=== PATIENT | female | born 2000 | race Caucasian/White ===

== ENCOUNTER 2022-10-28 07:45 | Inpatient (IN) ==
[2022-10-28] MEDS ORDERED: OXYTOCIN 30 UNITS/500 ML BAG IV PRN ×2 (08:09)
[2022-10-28] MEDS ORDERED: LIDOCAINE 1% LOCAL 20 ML VIAL INFIL PRN (08:09)
[2022-10-28] MEDS: LACTATED RINGER'S 1,000 ML IV PRN ×4 (08:30→21:47)
--- NOTE | 2022-10-28 08:31 | History & Physical Report ---
Date of Service October 28, 2022 Assessment & Plan (1) Encounter for induction of labor: (2) Post-dates : (3) Rubella non-immune status, antepartum: (4) Eczema: Plan: Gail is a 22F currently at 40 3/7 with YASHIRA 10/25/22 determined by LMP who is presenting to L&D for induction. - Patient admitted to labor and delivery for initiation of medical induction of labor - Patient did not receive Jason bulb or membrane sweep - Patient is at 2/80/-2 w/o evidence of contractions, thus oxytocin augmentation of labor will be started per protocol - Once contractions are progressing, will consider ROM - Will anticipate epidural as contractions arise - Labs pending - Rubella non-immune, will need MMR PP - Evidence of chronic eczema present at bilateral elbows and knees, pt requesting tx PP Admission and Anticipated Discharge Date Admission Date: October 28, 2022 History of Present Illness Chief Complaint: Induction Primary Care Provider: Phuong Lopez PA-C Subjective: Gail is a 22F currently at 40 3/7 with YASHIRA 10/25/22 determined by LMP 01/18/22 who is presenting to L&D for induction. Complications: None, rubella non-immune Reason for Induction: Post-dates Movement: Yes Fluid Loss/ROM: No Bloody show/discharge: Brown tinged vaginal discharge, no bleeding External FHT and uterine monitor: Category 1, tracing reactive, good FHT variability, average HR 150, no contractions Last OB appointment: 10/25, regular care [facility] Hx: Hx of Chlamydia 11/2020 (treated), no other STI hx, no hx of abnormal pap Labs: Blood Type: A+ Antibody Screen: Negative Hg/Hct (today): Pending WBC/Plt (today): Pending Rubella: Non-Immune RPR: Non-reactive Gonorrhea: Negative Chlamydia: Negative HIV: Negative HbSAg: Negative GBS: Negative Cff-DNA: Low risk Panorama: Low risk ROS: - Denies fever, chills, sweats - Denies dyspnea or pleuritic pain - Denies chest pain, palpitations, or pressure - Denies breast pain - Denies dysuria - Denies headache or visual changes : PARUL Daniels) Allergies Allergy/AdvReac Type Severity Reaction Status Date / Time No Known Allergies Allergy Mild Verified 10/25/22 13:34 Home Medications Medication Instructions Recorded Confirmed Type prenat.vits,mellissa,fcc-vaeg-lwfga 1 tab PO DAILY 12/26/21 10/28/22 History Patient History Medical History Allergic rhinitis due to animals Allergic rhinitis due to pollen Atopic dermatitis Chlamydia Eczema Varicella vaccination Surgical History H/O wisdom tooth extraction Family History (Updated 03/13/22 @ 13:19 by Lara Barger) Mother Breast cancer Hypertension Lymphoma Denies family history of Ovarian cancer Colorectal cancer Social History (Updated 03/13/22 @ 13:07 by Lara Barger) Smoking Status: Never smoker Second Hand Exposure: No; Hx Alcohol Use: No Hx Substance Use: No Preferred Language: Somali Communication Ability: Effective Specialist Field Engineer Required: No Beliefs That Will Affect Care: Buddhism marital status: marital status details: Manoj (24) [phone] Current Living Situation: Spouse Current Living Situation Comment: lives with spouse, 1 dog. current occupational status: employed current occupation: RN @ [employer] Other Information That Helps Us Care for You: No Feels Safe at Home: Yes Safety Concerns: Feels Safe At This Time Physical Exam Physical Exam: General: Alert, oriented. No acute distress. Cardiac: Regular rate and rhythm, no murmurs/rubs/gallops. Respiratory: Clear to auscultation bilaterally a/p, no wheezes/rales/rhonchi. No increased work of breathing. Symmetrical chest rise. No respiratory distress. Abdomen: Gravid; FHTs present; Position: Vertex by Stalin maneuver Pelvic: 0800 2/80/-[address] Lan Lower Extremities: No lower extremity edema or swelling. No deep calf pain. Sandy's negative bilaterally. Skin: Patches of dry, erythematous skin w/ associated excoriation present at aundrea ateral flexural surfaces of elbows and knees Results & Data ([facility]) Vital Signs (Past 12 Hours) Vital Signs Pulse BP 10/28/22 08:01 87 122/72 10/28/22 07:59 93 H 135/94 Code Status & VTE Plan VTE Prophylaxis Plan VTE Prophylaxis will be ordered: Yes Supervising Physician Co-Signing Physician Notes Resident Physician Supervision Note: I interviewed and examined the patient. Discussed with Dr. Agosto and agree with findings and plan as documented in the note. Any exceptions or clarifications are listed here: IOL, postdates. Pitocin. Patient agreeable with plan. Documented By: Aretha Lan, Resident Activity Tracking Resident Involvement: Resident Care Provided Care Provided: OB Delivery
[2022-10-28 09:00] LABS: Hematocrit (blood only) 35.5 % (34.1-44.9); Hemoglobin 11.9 g/dl (12.0-16.0); Mean Corpuscular Hemoglobin 30.4 pg (25.0-34.0); Mean Corpuscular Hgb Conc 33.5 g/dL (32.0-36.0); Mean Corpuscular Volume 90.6 fL (80.0-100.0); Mean Platelet Volume 9.9 fL (9.4-12.3); Platelet Count 236 K/uL (130-400); RDW Standard Deviation 42.3 fL (36.4-46.3); Red Blood Count 3.92 M/uL (3.93-5.22); White Blood Count 10.42 K/ul (4.8-10.8)
--- NOTE | 2022-10-28 15:21 | Labor Progress Brief Note ---
Date of Service October 28, 2022 Subjective Not really feeling pain from ctx. FHT Cat 1 toco Q 2 SVE 2-3/80/-2 AROM meconium-stained fluid. Assessment & Plan Admission and Anticipated Discharge Date Admission Date: October 28, 2022 Results & Data ([facility]) Vital Signs (Past 12 Hours) Vital Signs Temp Pulse Resp BP 10/28/22 08:41 36.8 C 87 18 122/72 10/28/22 15:03 85 10/28/22 15:03 127/78 10/28/22 14:01 96 H 10/28/22 14:01 134/79 10/28/22 13:02 79 10/28/22 13:02 121/75 10/28/22 12:01 82 10/28/22 12:01 124/72 10/28/22 11:00 83 10/28/22 11:00 36.9 C 83 18 131/75 10/28/22 10:33 74 10/28/22 10:33 136/85 10/28/22 09:30 81 10/28/22 09:30 118/62 10/28/22 09:25 77 10/28/22 09:25 134/70 10/28/22 08:01 87 122/72 10/28/22 07:59 93 H 135/94 Coding Level of Care Code None
[2022-10-28] MEDS ORDERED: ePHEDrine sulfate 50 MG/ML AMP ONE (17:23)
[2022-10-28] MEDS ORDERED: fentaNYL citrate 100 MCG/2 ML VIAL ONE (17:25)
[2022-10-28] MEDS ORDERED: fentaNYL 2MCG/ML ROPIVACAINE 1.25MG/ML 100 ML BAG EPI ONE (17:25)
[2022-10-28] MEDS ORDERED: LIDOCAINE 2%/EPINEPHRINE 1:200,000 20 ML SDV ONE (17:25)
[2022-10-28] MEDS ORDERED: BUPIVACAINE 0.25% 30 ML VIAL ONE (17:25)
[2022-10-28] MEDS ORDERED: SODIUM CHLORIDE 0.9% INJ 10 ML VIAL ONE (17:25)
--- NOTE | 2022-10-28 17:36 | Anesthesiology Consultation ---
Date of Service October 28, 2022 Assessment & Plan Chart Review Chart Review: Patient NOT seen in Pre Admission Testing and Acceptable Risk for Labor Epidural Consults Requested none ASA ASA2 Proposed Anesthesia Anesthesia Type: Labor Epidural Risk / Benefits Reviewed With: PT / POA / Parent / Guardian, Accepts Plan and Informed Consent Obtained History Height/Weight Height: 5 ft 6 in Weight: 110.677 kg Allergies Allergy/AdvReac Type Severity Reaction Status Date / Time No Known Allergies Allergy Mild Verified 10/25/22 13:34 Medications Home Medications Medication Instructions Recorded Confirmed Last Taken prenat.vits,mellissa,nfg-xxoy-olovx 1 tab PO DAILY 12/26/21 10/28/22 10/27/22 Active Medications Generic Name Dose Route Start Last Admin Trade Name Freq PRN Reason Stop Dose Admin Oxytocin 30 units in 500 mls @ 20 mls/hr 10/28/22 08:09 10/28/22 14:05 Pitocin IV 10/30/22 08:08 1.2 units/hr .Q24H PRN 20 mls/hr Labor Induction/Augmentation Titration Protocol 1.2 UNITS/HR Lactated Ringer's 1,000 mls @ 125 mls/hr 10/28/22 08:09 10/28/22 16:28 Lr IV 10/30/22 08:08 999 mls/hr .Q8H PRN Administration L&D Protocol Protocol Past Medical History Medical History Allergic rhinitis due to animals Allergic rhinitis due to pollen Atopic dermatitis Chlamydia Eczema Varicella vaccination Exercise / Class Metabolic Activity II 4-5 Yardwork/Stairs/Walk up hill Past Family History Family History (Updated 03/13/22 @ 13:19 by Lara Barger) Mother Breast cancer Hypertension Lymphoma Denies family history of Ovarian cancer Colorectal cancer Past Surgical History Surgical History H/O wisdom tooth extraction Past Anesthesia History No Hx of Anesthesia Complications and No Family Hx of Anesthesia Complications History of PONV No Hx of PONV and No Hx of Motion Sickness Social History Smoking Status: Never smoker Hx Alcohol Use: No Hx Substance Use: No Physical Exam Vital Signs Last Vital Signs Temp 36.9 C 10/28/22 11:00 Pulse 91 H 10/28/22 17:33 Resp 18 12/19/22 11:00 BP 119/74 10/28/22 17:33 Pulse Ox 99 10/28/22 17:31 ENMT Mouth: no dentition abnormality Thyromental Distance: > or= 3.5 Finger Breadths Mallampati Class: II Neck normal visual inspection Respiratory normal respiratory effort Auscultation: lungs clear to auscultation bilaterally Cardiovascular Rate/Rhythm: regular rate and regular rhythm Psychiatric Orientation: alert Testing Laboratory Results 10/28/22 08:38 Blood Type A Positive 10/28/22 08:38 Antibody Screen NEGATIVE 10/28/22 08:38
[2022-10-28] MEDS ORDERED: NALOXONE HCL 0.4 MG/1 ML VIAL/CARP IV PRN (17:43)
[2022-10-28] MEDS ORDERED: NALOXONE HCL 1 MG in SODIUM CHLORIDE 0.9% 1000ML 1,000 ML IV PRN (17:43)
[2022-10-28] MEDS ORDERED: PROMETHAZINE HCL 6.25 MG in SODIUM CHLORIDE 0.9% 50 ML IV PRN (17:43)
[2022-10-28] MEDS ORDERED: diphenhydrAMINE 50 MG/ML VIAL IV PRN (17:43)
[2022-10-28] MEDS ORDERED: ePHEDrine sulfate 50 MG/ML AMP IV PRN (17:43)
[2022-10-28] MEDS ORDERED: fentaNYL 2MCG/ML ROPIVACAINE 1.25MG/ML 100 ML BAG EPI PRN (17:43)
[2022-10-28] MEDS ORDERED: ONDANSETRON INJ 2 MG/ML 2 ML VIAL IV PRN (17:43)
[2022-10-28] MEDS ORDERED: NALBUPHINE HCL INJ 10 MG/ML AMP IV PRN (17:43)
--- NOTE | 2022-10-28 18:55 | Labor Progress Brief Note ---
Date of Service October 28, 2022 Subjective Comfortable with epidural. FHT Cat 1 Forman difficult to determine frequency SVE 4/100/-1 IUPC placed. FSE also placed, but unable to read on monitor - will return to external T monitoring. After IUPC placed ctx Q 2-3 min Assessment & Plan Admission and Anticipated Discharge Date Admission Date: October 28, 2022 Results & Data ([facility]) Vital Signs (Past 12 Hours) Vital Signs Temp Pulse Resp BP Pulse Ox 10/28/22 08:41 36.8 C 87 18 122/72 10/28/22 18:51 100 10/28/22 18:51 98 H 10/28/22 18:47 88 10/28/22 18:47 114/70 10/28/22 18:46 99 10/28/22 18:46 98 H 10/28/22 18:42 103 H 10/28/22 18:42 114/73 10/28/22 18:41 99 10/28/22 18:41 87 10/28/22 18:38 100 H 10/28/22 18:38 119/78 10/28/22 18:37 94 10/28/22 18:37 108 H 10/28/22 18:36 100 10/28/22 18:36 109 H 10/28/22 18:32 86 10/28/22 18:32 120/71 10/28/22 18:32 92 10/28/22 18:32 94 H 10/28/22 18:31 100 10/28/22 18:31 87 10/28/22 18:27 94 H 10/28/22 18:27 113/73 10/28/22 18:26 100 10/28/22 18:26 90 10/28/22 18:22 93 H 10/28/22 18:22 114/75 10/28/22 18:21 100 10/28/22 18:21 98 H 10/28/22 18:17 102 H 10/28/22 18:17 116/71 10/28/22 18:16 100 10/28/22 18:16 77 10/28/22 18:13 82 10/28/22 18:13 117/69 10/28/22 18:11 100 10/28/22 18:11 94 H 10/28/22 18:07 80 10/28/22 18:07 118/73 10/28/22 18:06 100 10/28/22 18:06 81 10/28/22 18:03 82 10/28/22 18:03 116/72 10/28/22 18:01 100 10/28/22 18:01 90 10/28/22 17:57 93 H 10/28/22 17:57 18 116/75 10/28/22 17:56 99 10/28/22 17:56 87 10/28/22 17:52 90 10/28/22 17:52 18 123/82 10/28/22 17:51 98 10/28/22 17:51 90 10/28/22 17:47 88 10/28/22 17:47 114/71 10/28/22 17:46 98 10/28/22 17:46 91 H 10/28/22 17:45 87 10/28/22 17:45 118/72 10/28/22 17:43 85 10/28/22 17:43 18 111/70 10/28/22 17:41 98 10/28/22 17:41 87 10/28/22 17:41 112/67 10/28/22 17:39 85 10/28/22 17:39 18 112/70 10/28/22 17:37 85 10/28/22 17:37 117/73 10/28/22 17:36 99 10/28/22 17:36 90 10/28/22 17:35 92 H 10/28/22 17:35 18 117/74 10/28/22 17:33 91 H 10/28/22 17:33 119/74 10/28/22 17:31 99 10/28/22 17:31 77 10/28/22 17:31 120/66 10/28/22 17:29 90 10/28/22 17:29 122/74 10/28/22 17:26 99 10/28/22 17:26 86 10/28/22 17:21 98 10/28/22 17:21 90 10/28/22 17:02 80 10/28/22 17:02 132/83 10/28/22 16:01 88 10/28/22 16:01 127/79 10/28/22 15:03 85 10/28/22 15:03 127/78 10/28/22 14:01 96 H 10/28/22 14:01 134/79 10/28/22 13:02 79 10/28/22 13:02 121/75 10/28/22 12:01 82 10/28/22 12:01 124/72 10/28/22 11:00 83 10/28/22 11:00 36.9 C 83 18 131/75 10/28/22 10:33 74 10/28/22 10:33 136/85 10/28/22 09:30 81 10/28/22 09:30 118/62 10/28/22 09:25 77 10/28/22 09:25 134/70 10/28/22 08:01 87 122/72 10/28/22 07:59 93 H 135/94 Coding Level of Care Code None
[2022-10-28] MEDS ORDERED: NURSING L&D Epidural Breakthrough Pain Update ONE (23:21)
--- NOTE | 2022-10-29 01:32 | Delivery Summary ---
Vaginal Delivery Summary Date of Service October 29, 2022 Vaginal Delivery Summary and 2nd Degree LAC Vaginal Delivery Summary: Pre-delivery diagnoses: 22yo @ 40 4/7, IOL for postdates Post-delivery diagnoses: same Procedure: spontaneous vaginal delivery Surgeon: Aretha Lan DO Complications: none Findings: Viable male . Apgars: 8/9. Weight pending, please see nursery records Estimated blood loss: 300ml Description of delivery: The patient progressed to complete with epidural anesthesia. She then began to push. She spontaneously vaginally delivered a viable from the cephalic presentation. The head delivered in ROXANNA position. Nuchal x 1, easily reduced. The anterior shoulder delivered, followed by the posterior shoulder, followed by the body. The baby was placed on mother's abdomen and a spontaneous cry was heard. Delayed cord clamping was employed, and the cord was doubly clamped and cut. Cord blood was obtained. The placenta was delivered spontaneously intact with a 3-vessel cord. The uterus and vagina were swept of clots and debris. IV pitocin was given. The uterus became firm. The cervix, vagina, and perineum were inspected and a 2nd degree perineal laceration was noted and repaired in standard fashion with 3-0 Vicryl. Excellent hemostasis was observed. The mother and baby are recovering in stable and good condition in the room. Sponge, needle and instrument counts were correct x 2. Aretha Lan DO [facility] Vaginal Delivery Charge Vaginal Delivery Codes: 72787 global code for the antepartum, delivery, and post- Delivery Type Details: and 2nd Degree LAC
[2022-10-29] MEDS ORDERED: ACETAMINOPHEN 325 MG TAB PO PRN (01:37)
[2022-10-29] MEDS ORDERED: DIPHTHERIA/TETANUS/PERTUSSIS 0.5 ML SYR/VIAL IM ONE (01:37)
[2022-10-29] MEDS ORDERED: BENZOCAINE 20% AER SPR 82.5 GM CAN EXT PRN (01:37)
[2022-10-29] MEDS ORDERED: OXYTOCIN 30 UNITS/500 ML BAG IV PRN (01:37)
[2022-10-29] MEDS ORDERED: MEASLES, MUMPS & RUBELLA VIRUS VIAL SQ ONE (01:37)
[2022-10-29] MEDS ORDERED: bisacodyL 10 MG SUPP PR PRN (01:37)
[2022-10-29] MEDS ORDERED: HYDROCORTISONE ACETATE 25 MG SUPP PR PRN (01:37)
[2022-10-29] MEDS ORDERED: oxyCODONE/ACETAMINOPHEN 5mg/325mg TAB PO PRN (01:37)
[2022-10-29] MEDS: IBUPROFEN 600 MG TAB PO PRN ×4 (02:45→21:34)
[2022-10-29] MEDS: PRENATAL VITAMIN 1 TAB PO SCH (08:34)
[2022-10-29] MEDS: DOCUSATE SODIUM 100 MG CAP PO SCH ×2 (08:34→21:34)
--- NOTE | 2022-10-29 10:00 | Anesthesia Procedure Note ---
Date of Service October 29, 2022 Anesthesia Post Epidural Note Vital Signs Vital Signs: Temp Pulse Resp BP Pulse Ox O2 Del Method 99.0 F 86 18 125/78 100 10/29/22 08:30 10/29/22 08:30 10/29/22 08:30 10/29/22 08:30 10/29/22 00:51 10/29/22 08:30 Pain Intensity Lower Abdomen: Pain Intensity: 7 Episiotomy/Laceration: Pain Intensity: 3 Notes Mental Status: alert / awake / arousable and participated in evaluation Nausea / Vomiting: adequately controlled Pain: adequately controlled Airway Patency, RR, SpO2: stable & adequate BP & HR: stable & adequate Hydration State: stable & adequate Neuraxial Anesthesia: was administered and sensory block is resolving Anesthetic Complications: no major complications apparent and Pt Satisfied with anesthetic care Epidural: Removed without complications and With tip intact
[2022-10-29] MEDS ORDERED: bisacodyL 5 MG TABEC PO ONE (21:31)
--- NOTE | 2022-10-30 05:14 | Obstetrical Progress Note ---
Date of Service October 30, 2022 Assessment & Plan (1) care following vaginal delivery: (2) Rubella non-immune status, antepartum: (3) Eczema: Plan - Overall, feeling well and eating well today - Infant feeding going well without concern - Urinating and passing gas appropriately - Ambulating well in room - Pain controlled w/ Ibuprofen - Hgb 11.9 on 10/28 - Vitals stable and wnl in AM (BP 144/86 overnight x 1) - Pt requests PO steroids at dc for ongoing eczema rash, discussed treatment options - Routine PP care progressing well - Anticipate discharge today - Recommending f/u outpatient in 6 weeks Admission and Anticipated Discharge Date Admission Date: October 28, 2022 Supervising Physician Co-Signing Physician Notes Resident Physician Supervision Note: I interviewed and examined the patient. Discussed with Dr. Agosto and agree with findings and plan as documented in the note. Any exceptions or clarifications are listed here: PP1 s/p , doing well. VSS, exam benign and wnl. Desires d/c home today, stable to do so Documented By: Kelsey Man MD Subjective Patient is a 22F who is PPD #1+ following delivery at 40 4/7. She reports feeling well overall this morning and wants to go home. - Ambulation - well throughout room - Voiding/Jason - independent voids, no dysuria or pressure - Gas/Stool - passing gas, no bowel movement - Diet - regular, no nausea or emesis - Lochia - diminishing, light amount - Infant Feeding Type - breast feeding - Pain Level - 2/10, controlled with Ibuprofen Review of Systems - Denies fever, chills, sweats - Denies shortness of breath, difficulty breathing, chest pain, palpitations, chest pressure. - Denies breast pain. - Denies dysuria. - Denies headache or changes in vision. - Concerns about itching at elbows and knees a/w excoriation Physical Exam Physical Exam: General: Alert, oriented. No acute distress. Cardiac: RRR, normal S1/S2, no murmurs/rubs/gallops. Respiratory: Non-labored, CTAB, no wheezes/rales/rhonchi. Symmetric chest rise. Abdomen: Soft, nontender, nondistended. Bowel sounds present. Uterus: Uterine fundus firm, palpable 2 cm below umbilicus. Lower Extremities: 1+ lower extremity edema (non-pitting). No deep calf pain. Sandy's negative bilaterally. Skin: Patches of dry, erythematous skin w/ associated excoriation present at bilateral flexural surfaces of elbows and knees Results & Data ([facility]) Vital Signs (Past 12 Hours) Vital Signs Temp Pulse Resp BP Pulse Ox O2 Del Method 10/30/22 00:45 36.7 C 91 H 18 125/75 97 Room Air 10/29/22 20:02 37.0 C 84 18 144/86 H 97 Room Air Resident Activity Tracking Resident Involvement: Resident Care Provided Care Provided: OB Delivery
[2022-10-30] MEDS: IBUPROFEN 600 MG TAB PO PRN (05:44)
[2022-10-30 06:30] LABS: Hematocrit (blood only) 33.2 % (34.1-44.9)
[2022-10-30] MEDS: PRENATAL VITAMIN 1 TAB PO SCH (07:29)
[2022-10-30] MEDS: DOCUSATE SODIUM 100 MG CAP PO SCH (07:29)
[2022-10-30] MEDS ORDERED: bisacodyL 5 MG TABEC PO SCH (20:00)
== END 2022-10-30 10:50 | disposition home or self-care (01) | DRG 807 ==
LOC: 4S1 07:45 → 4E2 10-29 03:45

== ENCOUNTER 2024-04-28 08:13 | Inpatient (IN) ==
[2024-04-28] MEDS ORDERED: OXYTOCIN 30 UNITS/NSS 30 UNITS/500 ML BAG IV PRN (08:16)
[2024-04-28] MEDS ORDERED: LIDOCAINE 1% LOCAL 20 ML VIAL INFIL PRN (08:16)
[2024-04-28 08:44] LABS: Hematocrit (blood only) 33.7 % (37.0-47.0); Hemoglobin 11.1 g/dl (12.0-16.0); Mean Corpuscular Hemoglobin 28.8 pg (25.0-34.0); Mean Corpuscular Hgb Conc 32.9 g/dL (32.0-36.0); Mean Corpuscular Volume 87.5 fL (80.0-100.0); Platelet Count 218 K/uL (130-400); RDW Coefficient of Variation 13.7 % (11.5-14.5); Red Blood Count 3.85 M/uL (4.20-5.40); White Blood Count 8.62 K/ul (4.8-10.8)
[2024-04-28] MEDS: LACTATED RINGER'S 1,000 ML IV PRN (09:06)
[2024-04-28] MEDS: OXYTOCIN 30 UNITS/NSS 30 UNITS/500 ML BAG IV PRN ×2 (09:07→18:38)
--- NOTE | 2024-04-28 09:22 | Labor Progress Brief Note ---
Date of Service April 28, 2024 Subjective Here for IOL, due to SIUP @ 40w4d. No OB c/o. Assessment & Plan (1) Post term over 40 weeks: Plan: Pitocin, Epidural, AROM, hopefully . Admission and Anticipated Discharge Date Admission Date: April 28, 2024 Physical Exam Genitourinary: /2 FHT Cat 1 No ROM No VB Wells quiet. Results & Data Vital Signs (Past 12 Hours) Vital Signs Temp Pulse Resp BP 04/28/24 09:06 97 H 04/28/24 09:06 125/71 04/28/24 08:20 98.1 F 20 04/28/24 08:19 88 131/69 Coding Level of Care Code None Diagnoses Post term over 40 weeks O48.0
[2024-04-28] MEDS: LIDOCAINE 2%/EPINEPHRINE 1:200,000 20 ML PF ONE (13:13)
[2024-04-28] MEDS: fentANYL 2 MCG/ML BUPIVacaine 0.125%-NSS 100ML BAG ONE (13:13)
--- NOTE | 2024-04-28 13:25 | Anesthesiology Consultation ---
Date of Service April 28, 2024 Assessment & Plan Chart Review Chart Review: Acceptable Risk for Labor Epidural Consults Requested none History Height/Weight Height: 5 ft 6 in Weight: 112.037 kg Allergies Allergy/AdvReac Type Severity Reaction Status Date / Time No Known Allergies Allergy Mild Verified 04/27/24 10:00 Medications Home Medications Medication Instructions Recorded Confirmed Last Taken clindamycin phosphate 1 % lotion 1 applic topical BID #60 mL 01/15/23 04/28/24 04/25/24 08:00 cetirizine 10 mg capsule (Zyrtec) 10 mg PO DAILY PRN Allergic 02/07/23 04/28/24 04/25/24 08:00 Symptoms vit 168-iron 27 mg-folic 1 cap PO DAILY 09/09/23 04/28/24 04/28/24 06:00 acid 800 mcg-omega3 235 mg capsule (One-A-Day -1) betamethasone dipropionate 0.05 % 1 applic topical BID #45 grams 12/08/23 04/28/24 04/25/24 08:00 topical ointment hydrocortisone 2.5 % topical cream 1 applic topical BID PRN atopic 12/08/23 04/28/24 04/25/24 08:00 derm #30 grams fluoxetine 10 mg capsule (Prozac) 10 mg PO DAILY #90 caps 03/16/24 04/28/24 04/28/24 06:00 methylphenidate HCl 5 mg tablet 5 mg PO TID #60 tabs 03/16/24 04/28/24 04/28/24 06:00 (Ritalin) Active Medications Generic Name Dose Route Start Last Admin Trade Name [place]gr[place] PRN Reason Stop Dose Admin Oxytocin 30 units in 500 mls @ 14 mls/hr 04/28/24 08:16 04/28/24 12:15 Pitocin 30 Units/Nss IV 04/30/24 08:15 0.84 units/hr .Q24H PRN 14 mls/hr Labor Induction/Augmentation Titration Protocol 0.84 UNITS/HR Lactated Ringer's 1,000 mls @ 125 mls/hr 04/28/24 08:16 04/28/24 13:13 Lr IV 04/30/24 08:15 125 mls/hr .Q8H PRN Administration L&D Protocol Protocol Past Medical History Medical History Post-dates Atopic dermatitis Allergic rhinitis due to pollen Allergic rhinitis due to animals Rubella non-immune status, antepartum Chlamydia Varicella vaccination Eczema Past Family History Family History Mother Breast cancer Hypertension Lymphoma Grandmother (Maternal) Breast cancer Grandmother (Paternal) Breast cancer Aunt Breast cancer Aunt Breast cancer Family/Other Breast cancer Denies family history of Ovarian cancer Prostate cancer Colorectal cancer Past Surgical History Surgical History H/O wisdom tooth extraction Social History Smoking Status: Never smoker Do You Dip or Chew Tobacco: No Hx Alcohol Use: Yes Alcohol type: beer Hx Substance Use: No Physical Exam Vital Signs Last Vital Signs Temp 37.1 C 04/28/24 12:02 Pulse 81 04/28/24 13:21 Resp 20 04/28/24 13:20 BP 100/55 L 04/28/24 13:21 Pulse Ox 100 04/28/24 13:19 Testing Laboratory Results 04/28/24 08:27
[2024-04-28] MEDS ORDERED: ROPIVACAINE 0.5% PF 5 MG/ML 20 ML VIAL EPI PRN (13:32)
[2024-04-28] MEDS ORDERED: NALBUPHINE HCL 5 MG in SYRINGE 0 ML IV PRN (13:32)
[2024-04-28] MEDS ORDERED: NALOXONE HCL 1 MG in SODIUM CHLORIDE 0.9% 1,000 ML IV PRN (13:32)
[2024-04-28] MEDS ORDERED: fentaNYL citrate PF 100 MCG/2 ML VIAL EPI PRN (13:32)
[2024-04-28] MEDS ORDERED: diphenhydrAMINE 50 MG/ML VIAL IV PRN (13:32)
[2024-04-28] MEDS ORDERED: LIDOCAINE 2% MPF LOCAL 5 ML VIAL EPI PRN (13:32)
[2024-04-28] MEDS ORDERED: BUPIVACAINE 0.25% PF 30 ML VIAL EPI PRN (13:32)
[2024-04-28] MEDS ORDERED: fentANYL 2 MCG/ML BUPIVacaine 0.125%-NSS 100ML BAG EPI PRN (13:32)
[2024-04-28] MEDS ORDERED: SODIUM CHLORIDE 0.9% PF INJ 10 ML VIAL EPI PRN (13:32)
[2024-04-28] MEDS ORDERED: NALOXONE HCL 0.4 MG/1 ML VIAL/CARP IV PRN (13:32)
[2024-04-28] MEDS: ePHEDrine sulfate 50 MG/ML AMP IV PRN (14:14)
[2024-04-28] MEDS: ACETAMINOPHEN 325 MG TAB ONE (14:15)
[2024-04-28] MEDS: ONDANSETRON INJ 2 MG/ML 2 ML VIAL IV PRN (14:15)
[2024-04-28] MEDS: ACETAMINOPHEN 325 MG TAB PO PRN (14:15)
[2024-04-28] MEDS: ePHEDrine sulfate 50 MG/ML AMP ONE (14:19)
[2024-04-28] MEDS: fentaNYL citrate PF 100 MCG/2 ML VIAL ONE (15:12)
[2024-04-28] MEDS: fentaNYL citrate PF 100 MCG/2 ML VIAL EPI STA (15:12)
[2024-04-28] MEDS: BUPIVACAINE 0.25% PF 30 ML VIAL EPI STA (15:12)
[2024-04-28] MEDS: BUPIVACAINE 0.25% PF 30 ML VIAL ONE (15:12)
[2024-04-28] MEDS: SODIUM CHLORIDE 0.9% PF INJ 10 ML VIAL ONE (15:12)
[2024-04-28] MEDS: SODIUM CHLORIDE 0.9% PF INJ 10 ML VIAL EPI STA (15:13)
[2024-04-28] MEDS: LIDOCAINE 2%/EPINEPHRINE 1:200,000 20 ML PF EPI STA (15:13)
--- NOTE | 2024-04-28 18:05 | Delivery Summary ---
Vaginal Delivery Summary Date of Service April 28, 2024 Vaginal Delivery Summary DIAGNOSES: 1. Lemus intrauterine at 40w4d gestation. 2. Spontaneous onset of labor. 3. Group B Streptococcus Neg. PROCEDURE: Spontaneous vaginal delivery and repair of second degree laceration. SURGEON: Melanie Roland MD. FOREIGN COLLECTION CLERK: None. QUANTITATIVE BLOOD LOSS: 282 mL. COMPLICATIONS: None. PLACENTA: Spontaneous and intact with a 3-vessel cord. DISPOSITION: Stable to labor and delivery. DESCRIPTION: The patient pushed well and brought the head to in DOP position. The infant's head was allowed to deliver with contraction force and no further active pushing, with the perineum protected during this time. There was no nuchal cord. The RIGHT shoulder was anterior. The shoulders and body delivered without any difficulty, and the infant was placed on the maternal abdomen. It was vigorous and moving all extremities, and making respiratory efforts. The cord was doubly clamped by the MD and then cut by the FOB. The placenta delivered spontaneously and was noted to be intact and with a 3VC. The cervix, vagina and perineum were examined and were found to have a second degree laceration repaired in the usual manner with vicryl suture, including a running closure of the skin which extended towards the R labia. The fundus was firm and lochia minimal immediately after delivery. Due to some bright red lochia flow noted during sponge count, I returned to place 1000mcg cytotec NC after explaining the reasons for this to pt and FOB. [facility] Vaginal Delivery Charge Vaginal Delivery Codes: 91184 global code for the antepartum, delivery, and post-
[2024-04-28] MEDS ORDERED: HYDROCORTISONE ACETATE 25 MG SUPP PR PRN (18:16)
[2024-04-28] MEDS ORDERED: oxyCODONE/ACETAMINOPHEN 5mg/325mg TAB PO PRN (18:16)
[2024-04-28] MEDS ORDERED: DIPHTHER/TETAN/PERTUS Vaccine (Tdap, Adol/Adult) 0.5mL IM ONE (18:16)
[2024-04-28] MEDS ORDERED: ACETAMINOPHEN 325 MG TAB PO PRN (18:16)
[2024-04-28] MEDS ORDERED: CETIRIZINE HCL 10 MG TABLET PO PRN (18:16)
[2024-04-28] MEDS ORDERED: bisacodyL 10 MG SUPP PR PRN (18:16)
[2024-04-28] MEDS: miSOPROStoL 200 MCG TAB ONE (18:19)
--- NOTE | 2024-04-28 18:20 | Anesthesia Procedure Note ---
Date of Service April 28, 2024 Anesthesia Post Epidural Note Vital Signs Vital Signs: Temp Pulse Resp BP Pulse Ox 36.9 C 87 18 127/64 97 04/28/24 17:00 04/28/24 18:17 04/28/24 18:00 04/28/24 18:17 04/28/24 18:04 Notes Mental Status: alert / awake / arousable Nausea / Vomiting: adequately controlled Pain: adequately controlled Airway Patency, RR, SpO2: stable & adequate BP & HR: stable & adequate Hydration State: stable & adequate Neuraxial Anesthesia: was administered and sensory block is resolving Anesthetic Complications: no major complications apparent and Pt Satisfied with anesthetic care Epidural: Removed without complications and With tip intact
[2024-04-28] MEDS: DOCUSATE SODIUM 100 MG CAP PO SCH (22:08)
[2024-04-28] MEDS: BENZOCAINE 20% SPRY 85 APPLN/85 GM CAN EXT PRN (22:08)
[2024-04-28] MEDS: IBUPROFEN 600 MG TAB PO PRN (23:53)
--- NOTE | 2024-04-29 06:09 | Obstetrical Progress Note ---
Date of Service April 29, 2024 Assessment & Plan (1) Encounter for assessment: Plan 24 y/o PPD#1: Eating well, voiding well, ambulating well Vitals reviewed, WNL Pain well controlled with Motrin Routine post care - OOB, ambulation, diet progression as tolerated Will have 6 week follow up with Dr. Roland Subjective Ambulation: ambulating normally Voiding: no voiding problems Passing Gas:: Yes Diet Tolerance:: regular diet Lochia:: Moderate Feeding Type:: breast feeding pain well controlled with Motrin Review of Systems -Denies fever or chills -Denies dyspnea, chest pain, or palpitations -Denies dysuria -Denies headache or changes in vision Physical Exam General: Alert and oriented. No acute distress Cardiac: Regular rate and rhythm, no murmurs appreciated Respiratory: Lungs clear to auscultation bilaterally, No increased work of breathing Abdominal: Soft, non-tender, non-distended. Bowel sounds present. Uterus: Uterine fundus firm, palpable below umbilicus Extremities: No lower extremity edema, calves non-tender bilaterally Results & Data Vital Signs (Past 12 Hours) Vital Signs Temp Pulse Pulse Resp BP BP Pulse Ox 04/29/24 04:15 36.7 C 75 18 113/73 97 04/28/24 23:46 37.1 C 80 18 131/79 95 04/28/24 20:34 36.7 C 90 18 117/75 97 04/28/24 20:02 89 04/28/24 20:02 130/61 04/28/24 20:00 18 04/28/24 19:47 97 H 04/28/24 19:47 142/72 H 04/28/24 19:32 93 H 04/28/24 19:32 119/63 04/28/24 19:30 20 04/28/24 19:17 95 H 04/28/24 19:17 121/67 04/28/24 19:02 75 04/28/24 19:02 116/57 L 04/28/24 19:00 18 04/28/24 18:49 76 04/28/24 18:49 123/58 L 04/28/24 18:45 76 18 123/58 L 04/28/24 18:32 82 04/28/24 18:32 112/59 L 04/28/24 18:30 87 18 127/64 06/19/24 18:17 87 04/28/24 18:17 127/64 04/28/24 18:15 87 20 127/64 04/28/24 18:15 85 04/28/24 18:15 125/68 O2 Del Method 04/29/24 04:15 Room Air 04/28/24 23:46 Room Air 04/28/24 20:34 Room Air 04/28/24 20:02 04/28/24 20:02 04/28/24 20:00 04/28/24 19:47 04/28/24 19:47 04/28/24 19:32 04/28/24 19:32 04/28/24 19:30 04/28/24 19:17 04/28/24 19:17 04/28/24 19:02 04/28/24 19:02 04/28/24 19:00 04/28/24 18:49 04/28/24 18:49 04/28/24 18:45 04/28/24 18:32 04/28/24 18:32 04/28/24 18:30 04/28/24 18:17 04/28/24 18:17 04/28/24 18:15 04/28/24 18:15 04/28/24 18:15 Resident Activity Tracking Resident Involvement: Resident Care Provided Care Provided: OB Delivery
[2024-04-29 06:41] LABS: Hematocrit (blood only) 31.9 % (37.0-47.0); Hemoglobin 10.1 g/dl (12.0-16.0); Mean Corpuscular Hemoglobin 28.2 pg (25.0-34.0); Mean Corpuscular Hgb Conc 31.7 g/dL (32.0-36.0); Mean Corpuscular Volume 89.1 fL (80.0-100.0); Mean Platelet Volume 10.1 fL (9.4-12.4); Platelet Count 201 K/uL (130-400); RDW Coefficient of Variation 13.6 % (11.5-14.5); RDW Standard Deviation 44.4 fL (36.4-46.3); Red Blood Count 3.58 M/uL (4.20-5.40); White Blood Count 14.08 K/ul (4.8-10.8)
[2024-04-29] MEDS: PRENATAL VITAMIN 1 TAB PO SCH (07:32)
[2024-04-29] MEDS: FLUoxetine HCL 10 MG CAP PO SCH (07:33)
[2024-04-29] MEDS ORDERED: MEASLES, MUMPS & RUBELLA VIRUS VACCINE (MMR) 0.5ML VIAL ONE (13:11)
[2024-04-29] MEDS: MEASLES, MUMPS & RUBELLA VIRUS VACCINE (MMR) 0.5ML VIAL SQ ONE (13:27)
[2024-04-29] MEDS ORDERED: bisacodyL 5 MG TABEC PO SCH (20:00)
== END 2024-04-29 19:05 | disposition home or self-care (01) | DRG 807 ==
LOC: 4S1 08:13 → 4E2 20:35
DX: Z3A.40 40 weeks gestation of pregnancy; O70.1 Second degree perineal laceration during delivery; Z79.899 Other long term (current) drug therapy; O48.0 Post-term pregnancy; Z37.0 Single live birth